=== PATIENT | female | born 1980 | race African-American/Black ===

== ENCOUNTER → 2016-12-21 | Outpatient (CLI) | payer BC ==
--- NOTE | 2016-12-21 17:17 | RADIOLOGY REPORT (SQ) ---
EXAM DESCRIPTION: CHEST PA/LATERAL COMPLETED DATE/TIME: 12/21/2016 5:04 pm REASON FOR STUDY: COUGH COMPARISON: None. EXAM PARAMETERS: NUMBER OF VIEWS: two views TECHNIQUE: Digital Frontal and Lateral radiographic views of the chest acquired. RADIATION DOSE: NA LIMITATIONS: none FINDINGS: LUNGS AND PLEURA: No opacities, masses or pneumothorax. No pleural effusion. MEDIASTINUM AND HILAR STRUCTURES: No masses or contour abnormalities. HEART AND VASCULAR STRUCTURES: Heart normal size. No evidence for failure. BONES: No acute findings. HARDWARE: None in the chest. OTHER: No other significant finding. IMPRESSION: NO SIGNIFICANT RADIOGRAPHIC FINDING IN THE CHEST. TECHNICAL DOCUMENTATION: JOB ID: [id number] [employer]- All Rights Reserved
== END ==
LOC: OD 16:49
PROVIDERS: ATTEND Nurse Practitioner Acute Care
DX: R05 Cough (principal)
CPT/HCPCS: 71020

== ENCOUNTER 2018-03-26 16:56 | Emergency (ER) | payer BC ==
--- NOTE | 2018-03-26 19:51 | ER Document Report ---
ED Medical Screen (RME) - General Chief Complaint: Abdominal Pain Stated Complaint: ABDOMINAL PAIN Time Seen by Provider: 03/26/18 19:41 Primary Care Provider: TIFFANI FERNÁNDEZ NP [Primary Care Provider] - Follow up as needed Mode of Arrival: Ambulatory Information source: Patient Notes: Patient is an otherwise healthy 38-year-old female presenting with right-sided abdominal pain that started this morning. Patient reports associated nausea but denies any vomiting or diarrhea. Patient denies any alleviating or exacerbating factors. Patient reports she still has her gallbladder. Denies any fevers. Exam: Tenderness to palpation to right upper quadrant, negative Roque sign. I have greeted and performed a rapid initial assessment of this patient. A comprehensive ED assessment and evaluation of the patient, analysis of test results and completion of the medical decision making process will be conducted by additional ED providers. Dictation of this chart was performed using voice recognition software; therefore, there may be some unintended grammatical errors. TRAVEL OUTSIDE OF THE [place] IN LAST 30 DAYS: No - Related Data Allergies/Adverse Reactions: azithromycin [From Zithromax] Allergy (Severe, Verified 03/26/18 17:01) swelling Penicillins Allergy (Severe, Verified 03/26/18 17:01) as child Past Medical History - Social History Chew tobacco use (# tins/day): No Frequency of alcohol use: Occasional Drug Abuse: None - Past Medical History Cardiac Medical History: Denies: Hx Heart Attack, Hx Hypertension Pulmonary Medical History: Denies: Hx Asthma, Hx Bronchitis, Hx COPD, Hx Pneumonia Neurological Medical History: Denies: Hx Seizures Renal/ Medical History: Denies: Hx Peritoneal Dialysis Musculoskeltal Medical History: Denies Hx Arthritis Past Surgical History: Reports: Hx Section, Hx Hysterectomy - Immunizations Hx Diphtheria, Pertussis, Tetanus Vaccination: Yes Physical Exam - Vital signs Vitals: Temp Pulse Resp BP Pulse Ox 98.4 F 70 18 144/93 H 100 03/26/18 17:03 03/26/18 17:03 03/26/18 17:03 03/26/18 17:03 03/26/18 17:03 Course - Vital Signs Vital signs: Temp Pulse Resp BP Pulse Ox 98.4 F 70 18 144/93 H 100 03/26/18 17:03 03/26/18 17:03 03/26/18 17:03 03/26/18 17:03 03/26/18 17:03 Doctor's Discharge - Discharge Referrals: TIFFANI FERNÁNDEZ MAIL CLERK [Primary Care Provider] - Follow up as needed
[2018-03-26 20:52] LABS: ABSOLUTE EOSINOPHILS # (AUTO) 0.1 10^3/uL (0.0-0.6); ABSOLUTE LYMPHOCYTES (AUTO) 2.5 10^3/uL (0.5-4.7); ABSOLUTE MONOCYTES (AUTO) 0.4 10^3/uL (0.1-1.4); ABSOLUTE NEUT (AUTO) 5.3 10^3/uL (1.7-8.2); BASOPHILS % (AUTO) 0.5 % (0-2); EOSINOPHILS % (AUTO) 1.2 % (0-6); HEMATOCRIT 37.8 % (36.0-47.0); HEMOGLOBIN 12.8 g/dL (12.0-15.5); LYMPHOCYTES % (AUTO) 30.1 % (13-45); MEAN CORPUSCULAR HEMOGLOBIN 29.7 pg (27.0-33.4); MEAN CORPUSCULAR VOLUME 87 fl (80-97); MONOCYTES % (AUTO) 5.1 % (3-13); PLATELET COUNT 215 10^3/uL (150-450); RED BLOOD COUNT 4.33 10^6/uL (3.72-5.28); RED CELL DISTRIBUTION WIDTH 15.5 % (11.5-14.0); SEGMENTED NEUTROPHILS % (AUTO) 63.1 % (42-78); TOTAL CELLS COUNTED % (AUTO) 100 %; WHITE BLOOD COUNT 8.4 10^3/uL (4.0-10.5)
[2018-03-26 20:59] LABS: APPEARANCE,URINE SLIGHTLY-CLOUDY; BILIRUBIN,URINE NEGATIVE (NEGATIVE); COLOR,URINE YELLOW; GLUCOSE, URINE NEGATIVE (NEGATIVE); KETONES,URINE NEGATIVE (NEGATIVE); LEUKOCYTE ESTERASE,URINE TRACE (NEGATIVE); NITRITE,URINE NEGATIVE (NEGATIVE); PROTEIN,URINE NEGATIVE (NEGATIVE); URINE SPECIFIC GRAVITY 1.025
[2018-03-26 21:10] LABS: ALANINE AMINOTRANSFERASE 25 U/L (9-52); ALBUMIN 4.2 g/dL (3.5-5.0); ALKALINE PHOSPHATASE 58 U/L (38-126); ANION GAP 9 (5-19); ASPARTATE AMINO TRANSFERASE 34 U/L (14-36); BILIRUBIN,DIRECT 0.2 mg/dL (0.0-0.4); BILIRUBIN,TOTAL 0.4 mg/dL (0.2-1.3); BLOOD UREA NITROGEN 22 mg/dL (7-20); CALCIUM 9.4 mg/dL (8.4-10.2); CARBON DIOXIDE 26 mmol/L (22-30); CHLORIDE 103 mmol/L (98-107); GLUCOSE 88 mg/dL (75-110); LIPASE 114.8 U/L (23-300); POTASSIUM 4.5 mmol/L (3.6-5.0); SODIUM 137.8 mmol/L (137-145); TOTAL PROTEIN 7.7 g/dL (6.3-8.2)
--- NOTE | 2018-03-26 23:23 | RADIOLOGY REPORT (SQ) ---
EXAM DESCRIPTION: US ABDOMEN LIMITED COMPLETED DATE/TME: 03/26/2018 19:45 CLINICAL HISTORY: 38 years, Female, RUQ pain COMPARISON: None. TECHNIQUE: Limited right upper quadrant ultrasound LIMITATIONS: None. FINDINGS: The liver is homogenous in echotexture without focal lesion. No gallstones or gallbladder wall thickening. Negative sonographic Roque sign. No pericholecystic fluid. CBD measures 3.7 mm. Visualized pancreas, abdominal aorta, right kidney, are unremarkable. There is no ascites IMPRESSION: Negative exam copyright 2010 [email or web address]- All Rights Reserved
[2018-03-27] MEDS ORDERED: FAMOTIDINE 20 MG TABLET PO ONE (00:29)
--- NOTE | 2018-03-27 00:33 | ER Document Report ---
ED General - General Chief Complaint: Abdominal Pain Stated Complaint: ABDOMINAL PAIN Time Seen by Provider: 03/26/18 19:41 Primary Care Provider: TIFFANI FERNÁNDEZ NP [NURSE PRACTITIONER] - Follow up as needed Mode of Arrival: Ambulatory TRAVEL OUTSIDE OF THE [place] IN LAST 30 DAYS: No - HPI Notes: Patient is a 38-year-old female that presents to the emergency department for chief complaint of abdominal pain. Patient reports epigastric and right upper quadrant abdominal pain that began today. She states it is sharp in nature. She denies aggravating or relieving factors. She denies associated nausea, vomiting or diarrhea. She reports having a normal bowel movement today. She denies history of any abdominal issues in the past. Patient has recently been drinking alcohol daily. She denies history of alcohol dependence or any alcohol withdrawal symptoms. Past Medical History: Negative Past Surgical History: Partial hysterectomy, Social History: Daily alcohol, denies tobacco and drug use Family History: Reviewed and noncontributory for presenting illness Allergies: Reviewed, see documented allergy list. REVIEW OF SYSTEMS: CONSTITUTIONAL : No fever No chills No diaphoresis No recent illness EENT: No vision changes No congestion No sore throat CARDIOVASCULAR: No chest pain No palpitations RESPIRATORY: No shortness of breath No cough No difficulty breathing GASTROINTESTINAL: abdominal pain No nausea No vomiting No diarrhea GENITOURINARY: No dysuria No hematuria No difficulty urinating MUSCULOSKELETAL: No back pain No leg pain No arm pain SKIN: No rashes No lesions LYMPHATIC: No swollen, enlarged glands. NEUROLOGICAL: No lightheadedness No headache No weakness No paresthesias PSYCHIATRIC: No anxiety No depression PHYSICAL EXAMINATION: Vital signs reviewed, nursing noted reviewed. GENERAL: Well-appearing, well-nourished and in no acute distress. HEAD: Atraumatic, normocephalic. EYES: Eyes appear normal, extraocular movements intact, sclera anicteric, conjunctiva are normal. ENT: nares patent, oropharynx clear without exudates. Moist mucous membranes. NECK: Normal range of motion, supple without lymphadenopathy LUNGS: Breath sounds clear to auscultation bilaterally and equal. No wheezes rales or rhonchi. HEART: Regular rate and rhythm without murmurs ABDOMEN: Soft, mild epigastric and right upper quadrant tenderness, negative Roque sign, normoactive bowel sounds. No rebound, guarding, or rigidity. No masses appreciated. EXTREMITIES: Nontender, good range of motion, no pitting or edema. NEUROLOGICAL: No focal neurological deficits. Moves all extremities spontaneously Motor and sensory grossly intact on exam. PSYCH: Normal mood, normal affect. SKIN: Warm, Dry, normal turgor, no rashes or lesions noted on exposed skin - Related Data Allergies/Adverse Reactions: azithromycin [From Zithromax] Allergy (Severe, Verified 03/26/18 17:01) swelling Penicillins Allergy (Severe, Verified 03/26/18 17:01) as child Past Medical History - General Information source: Patient - Social History Smoking Status: Never Smoker Chew tobacco use (# tins/day): No Frequency of alcohol use: Occasional Drug Abuse: None Family History: Reviewed & Not Pertinent Patient has suicidal ideation: No Patient has homicidal ideation: No - Past Medical History Cardiac Medical History: Denies: Hx Heart Attack, Hx Hypertension Pulmonary Medical History: Denies: Hx Asthma, Hx Bronchitis, Hx COPD, Hx Pneumonia Neurological Medical History: Denies: Hx Seizures Renal/ Medical History: Denies: Hx Peritoneal Dialysis Musculoskeletal Medical History: Denies Hx Arthritis Past Surgical History: Reports: Hx Section, Hx Hysterectomy - Immunizations Hx Diphtheria, Pertussis, Tetanus Vaccination: Yes Physical Exam - Vital signs Vitals: Temp Pulse Resp BP Pulse Ox 98.4 F 70 18 144/93 H 100 03/26/18 17:03 03/26/18 17:03 03/26/18 17:03 03/26/18 17:03 03/26/18 17:03 Course - Re-evaluation Re-evalutation: 03/27/18 00:32 Vitals reviewed. Nursing notes reviewed. Patient is well-appearing in no acute distress. She has mild abdominal tenderness with no peritoneal signs. Right upper quadrant ultrasound showed no acute cholecystitis or cholelithiasis. Her lab work is normal and she has no elevated LFTs. Patient was counseled on dietary changes and stopping alcohol consumption. She will be started on omeprazole for symptomatic management. She was counseled on return precautions and verbalized understanding. She is feeling improved at time of discharge. Laboratory 03/26/18 03/26/18 03/26/18 20:25 20:25 20:25 WBC 8.4 RBC 4.33 Hgb 12.8 Hct 37.8 MCV 87 MCH 29.7 MCHC 34.0 RDW 15.5 H Plt Count 215 Seg Neutrophils % 63.1 Lymphocytes % 30.1 Monocytes % 5.1 Eosinophils % 1.2 Basophils % 0.5 Absolute Neutrophils 5.3 Absolute Lymphocytes 2.5 Absolute Monocytes 0.4 Absolute Eosinophils 0.1 Absolute Basophils 0.0 Sodium 137.8 Potassium 4.5 Chloride 103 Carbon Dioxide 26 Anion Gap 9 BUN 22 H Creatinine 0.54 Est GFR ( Amer) > 60 Est GFR (Non-Af Amer) > 60 Glucose 88 Calcium 9.4 Total Bilirubin 0.4 Direct Bilirubin 0.2 Neonat Total Bilirubin Not Reportable Neonat Direct Bilirubin Not Reportable Neonat Indirect Bili Not Reportable AST 34 ALT 25 Alkaline Phosphatase 58 Total Protein 7.7 Albumin 4.2 Lipase 114.8 Beta HCG, Quant < 2.39 Total Beta HCG NEGATIVE Urine Color YELLOW Urine Appearance SLIGHTLY-CLOUDY Urine pH 6.0 Ur Specific [place] 1.025 Urine Protein NEGATIVE Urine Glucose (UA) NEGATIVE Urine Ketones NEGATIVE Urine Blood NEGATIVE Urine Nitrite NEGATIVE Urine Bilirubin NEGATIVE Urine Urobilinogen 2.0 H Ur Leukocyte Esterase TRACE H Urine WBC (Auto) 1 Urine RBC (Auto) 0 Squamous Epi Cells Auto 4 Urine Mucus (Auto) MANY Urine Ascorbic Acid NEGATIVE - Vital Signs Vital signs: Temp Pulse Resp BP Pulse Ox 98.4 F 70 18 144/93 H 100 03/26/18 17:03 03/26/18 17:03 03/26/18 17:03 03/26/18 17:03 03/26/18 17:03 - Laboratory Result Diagrams: 03/26/18 20:25 03/26/18 20:25 Laboratory results interpreted by me: 03/26/18 03/26/18 03/26/18 20:25 20:25 20:25 RDW 15.5 H BUN 22 H Urine Urobilinogen 2.0 H Ur Leukocyte Esterase TRACE H - Diagnostic Test Radiology reviewed: Image reviewed, Reports reviewed Discharge - Discharge Clinical Impression: Abdominal pain Qualifiers: Abdominal location: right upper quadrant Qualified Code(s): R10.11 - Right upper quadrant pain Condition: Stable Disposition: HOME, SELF-CARE Instructions: Abdominal Pain ([facility]), Reflux Disease (GERD) ([facility]) Additional Instructions: Please return to the emergency department if you have any worsening, or concern of your symptoms. Please return to the emergency department if you develop chest pain, difficulty breathing, severe abdominal pain, or ongoing vomiting. Please follow-up with your primary care physician in 2-3 days and any other recommended physicians. If prescribed, take all medications as directed. If you have any questions or concerns do not hesitate to return the emergency department for evaluation. Avoid drinking alcohol Avoid fried food, spicy food, citrus food and caffeine's Prescriptions: Omeprazole 40 mg PO DAILY #30 capsule. Referrals: TIFFANI FERNÁNDEZ, ROYA [NURSE PRACTITIONER] - Follow up in 3-5 days
[2018-03-27 01:26] VITALS: BP 148/76
== END 2018-03-27 01:26 | disposition home or self-care (01) ==
LOC: ER 16:56
DX: R10.11 Right upper quadrant pain (principal); Z88.3 Allergy status to other anti-infective agents; Z88.0 Allergy status to penicillin
CPT/HCPCS: 36415; 76705; 80053; 81001; 83690; 84702; 85025; 99284

== ENCOUNTER 2019-08-01 17:25 | Emergency (ER) | payer BC ==
[2019-08-01] MEDS ORDERED: KETOROLAC TROMETHAMINE INJ/PF 30 MG/1 ML SDV IV ONE (21:11)
[2019-08-01] MEDS ORDERED: FAMOTIDINE INJ/PF 20 MG/2 ML SDV IV ONE (21:11)
[2019-08-01] MEDS ORDERED: ONDANSETRON HCL INJ/PF 4 MG/2 ML SDV IV ONE (21:11)
[2019-08-01] MEDS ORDERED: METHOCARBAMOL INJ/PF 1000 MG/10 ML SDV IV ONE (21:11)
[2019-08-01] MEDS ORDERED: NORMAL SALINE 1000 ML 1,000 ML IV ONE (21:28)
--- NOTE | 2019-08-01 21:28 | ER Document Report ---
ED General - General Stated Complaint: ABDOMINAL PAIN/HEADACHE Time Seen by Provider: 08/01/19 20:45 Primary Care Provider: CHAO NJ MD [Primary Care Provider] - Follow up as needed TRAVEL OUTSIDE OF THE [place] IN LAST 30 DAYS: No - HPI Notes: Patient is a 39-year-old female who presents emergency department for evaluation of headache and abdominal pain. In [place], gathering the effects of her father who in May. She states on Sunday she developed a headache. It was not sudden in onset. It started in her right posterior neck, now wraps around both sides of her head and into her sikh areas. Nothing seems to make it better or worse. She went to an urgent care, was started on butalbital and Zofran. She got little in the way of relief. She then went to an urgent care with abdominal pain and continued headache. They put her on prednisone because they thought it could be "nasal drainage" despite her not really complaining of that. She also had some abdominal pain, so she was started on Bentyl. She followed up with her primary care provider via telehealth visit today, who recommended she have evaluation for her abdominal pain with a possible CT scan. Patient's abdominal pain started on Sunday. It was not related to food. It is epigastric. It does not radiate. She states is constant, but she has intermittent sharp pains. It is not affected by food, although she has had some nausea today. She had a normal bowel movement yesterday. She denies any dysuria, hematuria, urinary frequency. She has had some nausea but no emesis. No fevers or chills. - Related Data Allergies/Adverse Reactions: azithromycin [From Zithromax] Allergy (Severe, Verified 03/26/18 17:01) swelling Penicillins Allergy (Severe, Verified 03/26/18 17:01) as child Past Medical History - General Information source: Patient - Social History Smoking Status: Unknown if Ever Smoked Family History: Reviewed & Not Pertinent, Hypertension, Malignancy - Past Medical History Cardiac Medical History: Denies: Hx Heart Attack, Hx Hypertension Pulmonary Medical History: Denies: Hx Asthma, Hx Bronchitis, Hx COPD, Hx Pneumonia Neurological Medical History: Denies: Hx Seizures Renal/ Medical History: Denies: Hx Peritoneal Dialysis Musculoskeletal Medical History: Denies Hx Arthritis Past Surgical History: Reports: Hx Section, Hx Hysterectomy - Immunizations Hx Diphtheria, Pertussis, Tetanus Vaccination: Yes Review of Systems - Review of Systems Gastrointestinal: See HPI Musculoskeletal: See HPI Neurological/Psychological: See HPI -: Yes All other systems reviewed and negative Physical Exam - Vital signs Vitals: Temp Pulse Resp BP Pulse Ox 98.2 F 68 18 134/83 H 100 08/01/19 19:29 08/01/19 19:29 08/01/19 19:29 08/01/19 19:29 08/01/19 19:29 - Notes Notes: Vital signs reviewed, please refer to chart. Head is normocephalic, atraumatic. Pupils equal round, reactive to light. Neck is supple without meningismus. She has some mild tenderness at the base of the occiput on the right, as well as in the proximal sternocleidomastoid muscle. She has some tension in bilateral trapezius muscles. Heart is regular rate and rhythm. Lungs are clear to auscultation bilaterally. Abdomen is soft, mildly tender in the epigastrium and right upper quadrant without rebound or guarding, normoactive bowel sounds throughout. Extremities without cyanosis, clubbing. Posterior calves are nontender. Peripheral pulses are equal. Skin is warm and dry. Patient is awake, alert, oriented x3. Cranial nerves II - XII are grossly intact without focal neurological deficits. Strength is plus 5 out of 5 bilateral upper and lower extremities. Sensation is intact. Reflexes symmetrical. Intact [id number], rapid alternating movements, [id number]. Course - Re-evaluation Re-evalutation: 08/01/19 21:26 Patient presents to the emergency department for evaluation. She has been treated with butalbital, Zofran, prednisone, Bentyl. She really has not had relief from any of her symptoms. I told the patient to discontinue the prednisone. She had lab work done yesterday which was without abnormality per urgent care physician. I am not inclined to repeat blood work at this time. The patient has abdominal pain but it is not affected by food. She has no real other associated symptoms. She has a headache that is not the worst headache of her life, with a normal neurological exam. All of the symptoms seem to coincide with packing up her father's belongings, who survived 2 types of cancer, but suddenly from a blood clot. Certainly to me, stress and grief reaction are a possibility. Otherwise this is young and healthy female. She does have risk factors for gallbladder disease, so right upper quadrant ultrasound is ordered. I will also treat her symptomatically for her headache and abdominal pain with Pepcid, Toradol, Zofran, Robaxin, fluids. We will continue to monitor. 08/01/19 23:09 Patient's ultrasound has come back without any significant abnormality. I explained to the patient she could still have gallbladder dysfunction with a normal ultrasound, but her story is not entirely consistent with that. Follow- up with your primary care provider. They may want to discuss referral on to gastroenterology, possible EGD and further evaluation. Otherwise her headache feels significantly improved, her belly pain feels significantly improved. I recommended [id number] Pepcid as needed for abdominal symptoms. I will send her home with a prescription for Robaxin, as I do believe she had a tension headache. We discussed that this was likely related to grief and stress over the recent passing of her father. She is to follow-up with primary care as discussed, return to the ED with worsening or new concerning symptoms of any sort. 08/01/19 23:36 Patient states that she had been on recent antibiotics, was hoping for Diflucan for yeast infection. Order placed. - Vital Signs Vital signs: Temp Pulse Resp BP Pulse Ox 98.3 F 63 17 135/63 H 100 08/01/19 21:25 08/01/19 21:20 08/01/19 21:20 08/01/19 21:20 08/01/19 21:20 - Diagnostic Test Radiology reviewed: Image reviewed, Reports reviewed Radiology results interpreted by me: 08/01/19 23:10 Abdomen Ultrasound 08/01/19 21:12 IMPRESSION: No sonographic abnormality. copyright 2010 [employer]- All Rights Reserved Discharge - Discharge Clinical Impression: Tension headache, Upper abdominal pain Condition: Stable Disposition: HOME, SELF-CARE Instructions: Abdominal Pain ([facility]), Tension Headache ([facility]), Toradol Injection ([facility]) Additional Instructions: Take [id number] Pepcid as needed for abdominal pain. Take Robaxin as needed for headache, watch for dizziness and drowsiness with this medication. Please stop taking the prednisone as discussed. Follow-up with primary care next week. You may want to discuss further testing of your gallbladder, or possible referral on to gastroenterology for evaluation. Moist heat to the neck, gentle stretching for headache. If you develop fevers, vomiting, increased pain, or any other new or concerning symptoms, please return immediat huyen to the emergency department for evaluation. Prescriptions: Methocarbamol [Robaxin-750] 750 mg PO TID PRN #21 tablet PRN Reason: Referrals: CHAO JN MD [Primary Care Provider] - Follow up as needed
--- NOTE | 2019-08-01 22:56 | RADIOLOGY REPORT (SQ) ---
EXAM DESCRIPTION: US ABDOMEN LIMITED COMPLETED DATE/TME: 08/01/2019 21:12 CLINICAL HISTORY: 39 years, Female, RUQ tenderness, eval gallbladder COMPARISON: None. TECHNIQUE: LIMITATIONS: None. FINDINGS: No gallstones. No evidence of gallbladder wall thickening or pericholecystic fluid. The manufacturing technologist reported a negative sonographic Roque sign. No evidence of biliary tree dilatation. The liver and right kidney are unremarkable. The pancreatic head and body are unremarkable. The pancreatic tail was obscured by bowel gas. The abdominal aorta is normal in caliber. IMPRESSION: No sonographic abnormality. copyright 2010 [employer]- All Rights Reserved
[2019-08-01] MEDS ORDERED: FLUCONAZOLE 100 MG TABLET PO ONE (23:36)
[2019-08-01 23:45] VITALS: BP 130/72
== END 2019-08-01 23:57 | disposition home or self-care (01) ==
LOC: ER 17:25
DX: G44.209 Tension-type headache, unspecified, not intractable (principal); R10.10 Upper abdominal pain, unspecified; R10.9 Unspecified abdominal pain; R09.89 Other specified symptoms and signs involving the circulatory and respiratory systems; R10.13 Epigastric pain; R11.0 Nausea; Z88.0 Allergy status to penicillin; Z88.1 Allergy status to other antibiotic agents; I10 Essential (primary) hypertension
CPT/HCPCS: 99284; 96361; 96375; 96365; 76705; J2800; J1885; J2405; J7030; S0028

== ENCOUNTER 2019-09-15 08:24 | Day surgery (SDC) | payer BC ==
[~2019-09-15 08:24] MED LIST: PROPOFOL INJ 200 MG/20 ML VIAL IV ONE
[2019-09-15] MEDS ORDERED: PROPOFOL INJ 200 MG/20 ML VIAL IV ONE (10:18)
--- NOTE | 2019-09-15 10:23 | Operative Report ---
Operative Report DATE OF SURGERY: 09/15/19 Operative Report: The risks benefits and alternatives of the procedure explained to the patient in detail and informed consent is obtained.A GIF Olympus video scope was inserted into the patient's mouth and hypopharynx ,the esophagus is identified intubated and insufflated, the scope was then advanced through the esophagus stomach and duodenum, retroflexion maneuver is done, the esophagus stomach and first and second portions of the duodenum examined PREOPERATIVE DIAGNOSIS: Epigastric pain rule out peptic ulcer disease POSTOPERATIVE DIAGNOSIS: Gastritis status post biopsy rule out Helicobacter pylori OPERATION: EGD with biopsy SURGEON: RAINE JACOB ANESTHESIA: LMAC TISSUE REMOVED OR ALTERED: As noted above. COMPLICATIONS: None. ESTIMATED BLOOD LOSS: None. INTRAOPERATIVE FINDINGS: As noted above. PROCEDURE: Patient tolerated the procedure well. No immediate postprocedure complications are noted. Patient is discharged in good condition. Discharge date 09/15/2019. Discharge diet: Regular. Discharge activity: Regular. 2 to 3-week follow-up to discuss findings. Patient is instructed to call the office or proceed to the emergency room should there be any further problems or questions. Wait on the pathology.
[2019-09-15 10:50] VITALS: BP 142/67
== END 2019-09-15 10:45 | disposition home or self-care (01) ==
LOC: END 08:24
PROVIDERS: ATTEND Internal Medicine Gastroenterology
DX: K29.50 Unspecified chronic gastritis without bleeding (principal); Z03.818 Encounter for observation for suspected exposure to other biological agents ruled out; Z88.0 Allergy status to penicillin; Z88.1 Allergy status to other antibiotic agents; E66.01 Morbid (severe) obesity due to excess calories
CPT/HCPCS: 43239; 87635; 88305 ×2; 00731; J2704; C9803; 731